=== PATIENT | male | born 1985 | race Caucasian/White ===

== ENCOUNTER 2020-02-28 13:09 | Emergency (ER) | payer SELFPAY ==
--- NOTE | ~2020-02-28 | XR_ITS ---
XR tibia fibula LT 2V DATE: 02/28/2020 13:28 INDICATION: Penetrating injury with nail gun TECHNIQUE: Portable AP and lateral views COMPARISON: None FINDINGS: There is extensive subcutaneous emphysema of the lower leg and knee and ankle areas. No fracture or dislocation, periosteal reaction or bone destruction is detected. There is a small radiopaque foreign body at the anterior mid lower leg. IMPRESSION: Extensive subcutaneous emphysema and small radiopaque foreign body No fracture or dislocation Reviewed, dictated and finalized at location A.
[2020-02-28 13:17] VITALS: PULSE 80; RESP 20; TEMP 36.9; O2SAT 98
[2020-02-28 13:34] LABS: Basophils Absolute Auto 0.1 K/mm3 (0.0-0.1); Basophils Percent Auto 0.6 % (0.2-1.2); Eosinophils Absolute Auto 0.1 K/mm3 (0-0.3); Eosinophils Percent Auto 0.7 % (0-4.4); Hemoglobin 14.8 g/dL (14.0-18.0); Immature Granulocyte Absolute 0.02 K/mm3 (0.00-0.031); Immature Granulocyte Percent A 0.2 % (0-0.5); Lymphocytes Absolute Auto 3.21 K/mm3 (0.9-3.2); Lymphocytes Percent Auto 39.6 % (18.3-44.2); Mean Corpuscular HGB Conc 33.6 g/dl (32-36); Mean Corpuscular Volume 92.2 fl (80-100); Mean Platelet Volume 9.6 fl (7.4-10.4); Monocytes Absolute Auto 0.5 K/mm3 (0.1-0.6); Neutrophils Absolute Auto 4.3 K/mm3 (1.3-6.7); Neutrophils Percent Auto 52.9 % (45.5-73.1); Platelet Count Result 221 k/mm3 (150-375); Red Blood Count 4.77 M/mm3 (4.6-6.20); Red Cell Distribution Width 11.9 % (11.5-14.5); White Blood Count 8.1 K/mm3 (4.5-10.0)
[2020-02-28] MEDS: MORPHINE SULFATE 4 MG/ML INJ IV PUSH (13:46)
[2020-02-28 13:48] LABS: Alanine Aminotransferase 25 U/L (4-50); Albumin Level 4.5 g/dL (3.5-5.1); Alkaline Phosphatase 48 U/L (38-126); Aspartate Amino Transferase 27 U/L (17-59); Bilirubin,Total 0.5 mg/dL (0.2-1.3); Blood Urea Nitrogen 21 mg/dL (9-20); Calcium 8.8 mg/dL (8.4-10.2); Carbon Dioxide 27 mmol/L (22-30); Chloride 105 mmol/L (98-107); Estimated CRCL calculation 87 ml/min; Estimated Glomerular Filt Rate > 60; Glucose 143 mg/dL (75-110); Potassium 3.9 mmol/L (3.4-5.0); Sodium 138 mmol/L (137-145)
--- NOTE | 2020-02-28 13:55 | ED.LOWEXIN ---
HPI - Extremity Injury (Lower) General Chief Complaint: Extremity Injury, Lower Stated Complaint: NAIL IN MY RANDLE Time Seen by Provider: 02/28/20 13:25 History of Present Illness HPI Narrative: Patient is a 34-year-old male who presents the ER with injury to the left lower extremity. Patient was walking with a nail gun when he tripped and fell and struck the nail gun into his left randle. Patient then proceeded to inflate his left lower extremity with pressurized air. Tetanus shot up-to-date. Unsure if the nail was fully released into his randle or if it was retained within the gun. He has no numbness or tingling to the lower extremity. He has no other systemic issues. He mainly is experiencing exquisite pain to his left randle and then fullness to his proximal leg. Related Data Home Medications Medication Instructions Recorded Confirmed No Home Medications 02/28/20 02/28/20 Allergies Allergy/AdvReac Type Severity Reaction Status Date / Time No Known Allergies Allergy Verified 02/28/20 13:11 Review of Systems Review of Systems: All systems reviewed & are unremarkable except as noted in HPI and below Musculoskeletal: Comments: Left lower extremity pain and swelling Integumentary/Breasts: Comments: Skin defect left randle PMFSH Past Medical History Medical History (Updated 02/28/20 @ 14:32 by Douglas Soares MD) No significant past medical history Surgical History Surgical History (Updated 02/28/20 @ 13:58 by Douglas Soares MD) No significant past surgical history Social History Social History (Updated 02/28/20 @ 13:58 by Douglas Soares MD) Substance use: never Exam Narrative: Exam Narrative: GENERAL: Anxious-appearing, well-nourished, and in no acute distress. HEAD: Normocephalic, atraumatic. ENT: Mucous membranes moist. CHEST: Clear to auscultation. No respiratory distress. HEART: Regular rate and rhythm. Normal peripheral pulses. EXTREMITIES: Left lower extremity from proximal thigh down to foot enlargement compared to the right with palpable crepitus. Pain with passive and active range of motion at the knee and ankle. Significantly tender over the anterior randle on the left side. Intact dorsalis pedis pulses on the left with brisk capillary refill and sensation also intact. SKIN: Warm, dry, small skin defect left randle where there is residual blood that appears to reflect area of skin puncture. NEURO: Alert and oriented x3. Sensation intact left lower extremity. PSYCH: Normal mood and affect. Course [employer] Physician Supervision Accepted for transfer to [facility] by Dr. Davidson. Also with Dr. Villela with ortho. Reevaluation(s) Date: 02/28/20 Time: 14:09 Reevaluation #2: Patient very aggitated and seems argumentative with nurse from hearing him speak to her through the curtain. Patient has had dilaudid 1mg and morphine 4 mg. I went in an confronted patient about calming down. Feels we are being argumetative with him. Frustrated because he hasn't received his results despite having all ready having arranged his transfer and personally contacting his . Pt informed that there is a small FB in his randle but doesn't seem to be in the bone but her certainly doesn't have a full nail in his leg. He has received Abx IV. We are only waiting on an ambulance at this time. Date: 02/28/20 Time: 14:56 Vital Signs Vital signs: Vital Signs Temperature 98.4 F 02/28/20 13:17 Pulse Rate 80 02/28/20 13:17 Respiratory Rate 20 02/28/20 13:17 Pulse Oximetry 98 02/28/20 13:17 Temperature 98.4 F 02/28/20 13:17 Pulse Rate 80 02/28/20 13:17 Respiratory Rate 20 02/28/20 13:17 Pulse Oximetry 98 02/28/20 13:17 MDM - Extremity Injury (Lower) Lab Data Result diagrams: 02/28/20 13:27 02/28/20 13:27 Labs: Lab Results 02/28/20 02/28/20 Range/Units 13:27 13:27 WBC 8.1 (4.5-10.0) K/mm3 RBC 4.77 (4.6-6.20) M/mm3 Hgb 14.8 (14.0-18.0)
[2020-02-28] MEDS: HYDROMORPHONE HCL 1 MG/ML INJ IV PUSH ×2 (14:18→15:02)
--- NOTE | 2020-02-28 14:41 | PC.NURSE ---
[facility] declined transfer
[2020-02-28 15:30] VITALS: BP 135/94; PULSE 84; RESP 18; O2SAT 98
== END 2020-02-28 15:32 | disposition short-term general hospital (02) ==
PROVIDERS: Emergency Provider Emergency Medicine
DX: S81.842A Puncture wound with foreign body, left lower leg, initial encounter (principal); T79.7XXA Traumatic subcutaneous emphysema, initial encounter; W29.4XXA Contact with nail gun, initial encounter
CPT/HCPCS: 36415; 73590; 80053; 85025; 96365; 96375; 96376; 99285; J0690; J1170; J2270